=== PATIENT | male | born 2000 | race African-American/Black ===

== ENCOUNTER 2020-11-14 23:29 | Emergency (ER) | payer OTHER ==
[~2020-11-14] VITALS: Ht 170.2 cm; Wt 72.6 kg
[~2020-11-14 23:29] MED LIST: PEPCID40 MG PO
[2020-11-14] MEDS ORDERED: NEXIUM 40 MG CA40 M1 PO (23:35)
[2020-11-15 00:02] LABS: URINE BILIRUBIN NEGATIVE (Negative); URINE BLOOD NEGATIVE (Negative); URINE CLARITY SL CLOUDY; URINE COLOR YELLOW; URINE GLUCOSE-RANDOM* NEGATIVE (Negative); URINE KETONES NEGATIVE (Negative); URINE LEUKOCYTES-REFLEX NEGATIVE (Negative); URINE NITRITE-REFLEX NEGATIVE (Negative); URINE PROTEIN (DIPSTICK) TRACE (Negative); URINE UROBILINOGEN 0.2 E.U./dl (0.2-1.0)
[2020-11-15 00:05] LABS: ABSOLUTE NEUTROPHILS 3.1 thou/uL (1.4-8.2); BASOPHILS 0.7 % (0.0-2.0); EOSINOPHILS 4.2 % (0.0-3.0); HEMATOCRIT 49.8 % (42.0-52.0); HEMOGLOBIN 17.1 gm/dL (14.0-18.0); LYMPHOCYTES 28.7 % (24.0-44.0); MCHC 34.4 g/dL (28.0-37.0); MCV 84.3 fL (80.0-100.0); MONOCYTES 7.2 % (1.0-8.0); PLATELET COUNT 187 thou/uL (150-400); POLYS 59.2 % (36.0-66.0); RBC 5.91 mil/uL (4.50-6.00); RDW 13.1 % (10.5-14.5); WBC 5.2 thou/uL (4.0-11.0)
[2020-11-15 00:14] LABS: CALCIUM 8.5 mg/dL (8.5-10.1); CREATININE 1.1 mg/dL (0.7-1.3); POTASSIUM 3.5 mmol/L (3.5-5.1)
[2020-11-15 00:20] LABS: ALBUMIN 3.4 g/dL (3.4-5.0); TOTAL BILIRUBIN 0.7 mg/dL (0.2-1.0); TOTAL PROTEIN 6.1 g/dL (6.4-8.2)
[2020-11-15 00:41] VITALS: BP 118/74
== END 2020-11-15 00:42 | disposition home or self-care (01) ==
LOC: ER 23:29
PROVIDERS: Emergency Medicine
DX: K21.9 Gastro-esophageal reflux disease without esophagitis (principal); F17.210 Nicotine dependence, cigarettes, uncomplicated; Z79.899 Other long term (current) drug therapy